=== PATIENT | female | born 1960 | race African-American/Black ===

== ENCOUNTER 2016-11-23 08:17 | Inpatient (IN) | payer OTHER ==
[~2016-11-23] VITALS: Ht 167.6 cm; Wt 151.5 kg
[2016-11-23] VITALS (12 sets, daily range): BP systolic 113–129; BP diastolic 57–75
--- NOTE | ~2016-11-23 | S ---
[facility] [place] [address] SURGICAL PATH RPT PROCEDURE Name: MARLENY MENDEZ Room #: 541-P DIS IN M.R.#: [id number] Admission: 11/23/16 Date of : 58 Discharge: 11/24/16 Report #: [id number] Path Case #: [id number] PATHOLOGY REPORT COLLECTION DATE: 11/23/2016 RECEIVED DATE: 11/23/2016 SUBMITTING PHYS: Dr. Silvia Murry OTHER PHYS: Dr. Harris Raya SPECIMEN(S) RECEIVED: A.Sleeve gastrectomy * * * * * * * * * * * * FINAL DIAGNOSIS: Sleeve gastrectomy: - Normal stomach tissue. (TARIQ:pit; 11/25/2016) PATHOLOGIST: Zaki Laura M.D. REPORT ELECTRONICALLY SIGNED BY: Zaki Laura M.D. DATE/TIME: 11/25/2016 11:19 * * * * * * * * * * * * GROSS PATHOLOGY: The specimen is received in formalin, labeled "Marleny Mendez, sleeve gastrectomy". Received is a partial gastrectomy specimen with a stapled margin of resection measuring 22.4 x 5.1 x 2.3 cm in maximum dimension. The serosal surface is tiwari pink and slightly wrinkled with a slight amount of attached yellow-tiwari lobulated tissue. Opening the specimen reveals a light tiwari to tiwari pink mucosa with a cerebriform appearance and normal rugal folds. The specimen is submitted representatively in cassette A1. (ANGUS; 11/24/2016) CLINICAL HISTORY: Morbid obesity INITIAL CPT CODE(S): A; 19125 Professional services performed by [facility] at [facility], [facility] [address], [place] [address]. Technical services performed by [facility] at [address] [place] [address], [address], [place] [address]. [facility] [address] [place] [address] SURGICAL PATH RPT PROCEDURE Name: MARLENY MENDEZ Room #: 541-P DIS IN .R.#: [id number] Admission: 11/23/16 Date of : 58 Discharge: 11/24/16 Report #: [id number] Path Case #: [id number] [facility] [address] [address] PHONE: [phone] DIRECTOR: Jameson Andrade M.D. * * * END OF REPORT * * *
[~2016-11-23 08:17] MED LIST: ALBUTEROL2.5 MG/31 INH; ALDACTONE25 MG PO; ASPIR 8181 MG PO; CARVEDILOL12.5 MG PO; COREG25 MG PO; DIGOXIN125 MCG PO; ENTRESTO 97 MG1 EACH PO; LASIX 40 MG TAB40 M2 PO; NORFLEX100 MG PO; PRILOSEC 20 MG20 MG PO; SYMBICORT160 MCG/4. INH
[2016-11-23 09:46] LABS: HEMATOCRIT 41.7 % (37.0-47.0); HEMOGLOBIN 13.9 gm/dL (12.0-15.0)
[2016-11-23 09:51] LABS: CALCIUM 9.5 mg/dL (8.5-10.1); CREATININE 0.7 mg/dL (0.6-1.0); POTASSIUM 3.5 mmol/L (3.5-5.1)
[2016-11-24 00:20] VITALS: BP 114/62
[2016-11-24 04:39] VITALS: BP 118/70
[2016-11-24 04:39] LABS: HEMATOCRIT 38.1 % (37.0-47.0); HEMOGLOBIN 12.8 gm/dL (12.0-15.0); MCH 29.7 pg (26.0-34.0); MCHC 33.7 g/dL (28.0-37.0); MCV 88.1 fL (80.0-100.0); RBC 4.32 mil/uL (4.20-5.00); RDW 15.1 % (10.5-14.5); WBC 10.3 thou/uL (4.0-11.0)
[2016-11-24 04:44] LABS: CALCIUM 8.8 mg/dL (8.5-10.1); POTASSIUM 4.2 mmol/L (3.5-5.1)
[2016-11-24 08:00] VITALS: BP 112/53
[2016-11-24] MEDS ORDERED: HYDROCODONE-ACE15 ML PO (10:58)
[2016-11-24] MEDS ORDERED: ZOFRAN ODT4 M1 PO (10:59)
[2016-11-24 11:09] VITALS: BP 112/53
== END 2016-11-24 13:02 | disposition home or self-care (01) | DRG 621 ==
LOC: OR 08:17 → TBA 08:17 → OR 11:14 → 5S 15:35 → OR 15:35 → 5S 11-24 13:02
PROVIDERS: Surgery
PROC: 0BQR4ZZ (ICD-10-PCS; principal; 2016-11-23)
PROC: 0DB64Z3 Excision of Stomach, Percutaneous Endoscopic Approach, Vertical (ICD-10-PCS; principal; 2016-11-23)
PROC: 0BQS4ZZ (ICD-10-PCS; principal; 2016-11-23)
PROC: 03HY32Z Insertion of Monitoring Device into Upper Artery, Percutaneous Approach (ICD-10-PCS; 2016-11-23)
PROC: 4A133B1 Monitoring of Arterial Pressure, Peripheral, Percutaneous Approach (ICD-10-PCS; 2016-11-23)
PROC: 4A133J1 Monitoring of Arterial Pulse, Peripheral, Percutaneous Approach (ICD-10-PCS; 2016-11-23)
PROC: 0DJ08ZZ Inspection of Upper Intestinal Tract, Via Natural or Artificial Opening Endoscopic (ICD-10-PCS; 2016-11-23)
DX: E66.01 Morbid (severe) obesity due to excess calories (principal); K44.9 Diaphragmatic hernia without obstruction or gangrene; I10 Essential (primary) hypertension; K21.9 Gastro-esophageal reflux disease without esophagitis; J45.909 Unspecified asthma, uncomplicated; M54.5 Low back pain; Z88.2 Allergy status to sulfonamides; Z79.82 Long term (current) use of aspirin; Z79.899 Other long term (current) drug therapy; Z68.43 Body mass index [BMI] 50.0-59.9, adult
CPT/HCPCS: 10089; 50010; 50101; 50222; 50249; 50386; 50555; 50558; 50739; 50740; 50962; 51437; 51489; 52182; 52265; 53307; 53311; 54022; 54118; 55326; 56462; 56525; 56526; 56531; 56719; 57092; 62110; 62900; 65020; 65040; 65043; 70005